=== PATIENT | male | born 1940 | race Caucasian/White ===

== ENCOUNTER 2023-07-25 10:09 | Outpatient (CLI) | payer MEDICARE, SELFPAY ==
[2023-07-25 11:06] LABS: Hematocrit 31.9 % (42.0-52.0); Hemoglobin 10.4 g/dL (14.0-18.0); Mean Corpuscular HGB Conc 32.6 g/dl (32-36); Mean Corpuscular Volume 91.9 fl (80-100); Mean Platelet Volume 9.5 fl (7.4-10.4); Platelet Count Result 148 k/mm3 (150-375); Red Blood Count 3.47 M/mm3 (4.6-6.20); Red Cell Distribution Width 13.7 % (11.5-14.5); White Blood Count 6.4 K/mm3 (4.5-10.0)
[2023-07-25 11:17] LABS: Anion Gap 13 mmol/L (8-16); Blood Urea Nitrogen 57 mg/dL (9-20); Calcium 9.9 mg/dL (8.4-10.2); Carbon Dioxide 25 mmol/L (22-30); Chloride 103 mmol/L (98-107); Estimated Glomerular Filt Rate 17; Glucose 146 mg/dL (65-110); Potassium 4.2 mmol/L (3.4-5.0); Sodium 141 mmol/L (137-145)
[2023-07-25 11:18] LABS: Prothrombin Time 13.9 Seconds (11.1-14.7)
[2023-07-25 11:20] LABS: Partial Thromboplastin Time 28.9 SECONDS (22.3-36.8)
[2023-07-25 11:23] LABS: Appearance Urine Clear (Clear); Bacteria Urine None Seen /hpf; Bilirubin Urine Negative (Negative); Blood Urine 1+ (Negative); Color Urine Yellow (Yellow); Glucose Urine UA Negative (Negative); Ketones Urine Negative (Negative); Leukocyte Esterase Ur Negative LEU/UL (Negative); Nitrate Urine Negative (Negative); Non Pathogenic Casts 0-2; Protein Urine 3+ mg/dL (Negative); RBC Urine 0-2 /hpf (0-2); Specific Grav Ur 1.012 (1.001-1.035); Squamous Epithelial Cell Urine None seen /hpf (Few); Urobilinogen Urine 0.2 mg/dL (<2.0); WBC Urine 0-5 /hpf; pH Urine 7.5 (5.0-9.0)
[2023-07-25 11:38] LABS: Add Urine Microscopic? YES
== END 2023-07-25 10:10 | disposition home or self-care (01) ==
PROVIDERS: Visit Provider Neurological Surgery
DX: M48.062 Spinal stenosis, lumbar region with neurogenic claudication (principal); Z01.818 Encounter for other preprocedural examination
CPT/HCPCS: 36415; 80048; 80053; 80061; 81001; 82043; 82607; 84443; 85027; 85610; 85730

== ENCOUNTER 2023-07-25 10:23 | Outpatient (CLI) | payer MEDICARE, SELFPAY ==
[2023-07-25 11:20] LABS: Alanine Aminotransferase 23 U/L (6-50); Albumin Level 4.6 g/dL (3.5-5.1); Alkaline Phosphatase 100 U/L (38-126); Anion Gap 12 mmol/L (8-16); Aspartate Amino Transferase 32 U/L (17-59); Bilirubin,Total 0.7 mg/dL (0.2-1.3); Blood Urea Nitrogen 57 mg/dL (9-20); Calcium 9.8 mg/dL (8.4-10.2); Carbon Dioxide 26 mmol/L (22-30); Chloride 103 mmol/L (98-107); Cholesterol 120 mg/dL (0-200); Estimated Glomerular Filt Rate 17; Glucose 148 mg/dL (65-110); HDL Direct 41 mg/dL; Potassium 4.2 mmol/L (3.4-5.0); Sodium 141 mmol/L (137-145); Triglycerides 143 mg/dL (<150)
[2023-07-25 11:31] LABS: LDL Cholesterol Direct 53 mg/dL
[2023-07-25 12:20] LABS: Microalbumin Urine Random > 1140.0 mg/L (0-16.7)
== END 2023-07-25 10:24 | disposition home or self-care (01) ==
PROVIDERS: Visit Provider Internal Medicine Endocrinology, Diabetes & Metabolism
DX: E11.65 Type 2 diabetes mellitus with hyperglycemia (principal); E78.5 Hyperlipidemia, unspecified; E78.1 Pure hyperglyceridemia; R80.9 Proteinuria, unspecified; Z79.4 Long term (current) use of insulin
CPT/HCPCS: 36415; 80053; 80061; 82043; 82607; 84443

== ENCOUNTER 2023-07-31 00:46 | Day surgery (SDC) | payer MEDICARE, SELFPAY ==
[2023-07-24 08:27] VITALS: BMI 26.5
--- NOTE | 2023-07-24 08:46 | PC.NURSE ---
PRE-OP INSTRUCTIONS, PLEASE READ CAREFULLY Report to the Outpatient Waiting Room, entrance under the green pavilion located off [facility], at time _1030_ on date _07/31/23_. Planned Procedure Time: _1230_. PACK A SMALL OVERNIGHT BAG AND LEAVE IN THE CAR Time changes happen often and if your time is changed the preop area will call you the afternoon before. - You and your visitor will be asked to self-screen and do not enter if you have any COVID symptoms. - A mask is optional within the hospital at this time. Patients may have clear liquids (water, carbonated beverages, clear teas, apple juice) until 3 hours prior to surgery (0930 AM) with a maximum of 20 ounces. - No food from midnight until time of surgery Take the following medications with a SIP of water the morning of surgery: _1/2 AM INSULIN DOSE, AMLODIPINE, ISOSORBIDE, METOPROLOL & INHALER, NITROGLYCERIN IF NEEDED_ DO NOT STOP ANY OF YOUR OTHER PRESCRIPTION MEDICATIONS PRIOR TO SURGERY ?EXCEPT THE FOLLOWING Medications to discontinue per DR. SALVADOR - _PT STATES TAKING LAST DOSE OF ASPIRIN & FISH OIL 07/23/23_ Medications to discontinue per ANESTHESIA - _MULTIVITAMIN 3 DAYS PRIOR TO SURGERY, Date to take last dose 07/27/23_ Please no make-up, nail yoruba, hairspray, perfume, deodorant, or body powder the day of surgery. No jewelry (including any body piercings) or valuables the day of surgery, leave them at home. Please take a shower or bath the night before, or the morning of, surgery with an antibacterial soap. Wear comfortable, loose fitting clothing. - Jewelry must be removed prior to entering the operating room. Rings and piercings that are not removed may be cut off. - The hospital will not accept responsibility for valuables. - Please leave all valuables, including medications, at home the day of surgery. If you are going home after surgery, a licensed uke driver must drive you home. - NO public transportation without another adult if you receive anesthesia. - We recommend that an adult stay with you for 24 hours following discharge. - We also recommend that you do not drive, make important decision, drink alcoholic beverages, or take any drugs that were not prescribed by your health care provider for at least 24 hours after your discharge time. Follow any additional instructions given to you from your surgeon. If you or anyone in your household have experienced Covid symptoms in the past week, please notify your surgeon or the nurse liaison at the phone number below for possible testing. Telephone instructions given to _PATIENT_and asked if any additional questions and then verbalized understanding. Patient advised to call surgeon office or pre surgery nurse liaison [phone] if any additional questions.
[2023-07-31] VITALS (13 sets, daily range): BP systolic 101–158; BP diastolic 48–68; PULSE 52–70; RESP 12–20; TEMP 36.1–36.5; O2SAT 93–100; BMI 26.7
--- NOTE | ~2023-07-31 | XR_ITS ---
EXAMINATION: XR chest 2V DATE: 08/01/2023 13:05 INDICATION: Hypoxia. TECHNIQUE: Frontal and lateral views of the chest were obtained. COMPARISON: None. FINDINGS: There are peripheral airspace opacities in right upper lung zone. No pleural effusion or pn eumothorax. The heart size is normal. Mediastinal surgical clips and changes of median sternotomy are likely secondary to coronary artery bypass grafting. IMPRESSION: 1. Peripheral airspace opacities in right upper lung zone, which may be pneumonia or scarring. Consid er noncontrast chest CT to exclude malignancy. Reviewed, dictated and finalized at location A. TRIPPER OPERATOR IMPRESSION: 1. Peripheral airspace opacities in right upper lung zone, which may be pneumon ia or scarring. Consider noncontrast chest CT to exclude malignancy.
--- NOTE | ~2023-07-31 | XR_ITS ---
EXAMINATION: XR fluoroscopy no charge DATE: 07/31/2023 14:00 BRIQUETTING MACHINE OPERATOR INDICATION: LUMBAR LAMINECTOMY . TECHNIQUE: 2 fluoroscopic images of the lumbar spine were obtained during lumbar laminectomy performe d by the surgeon. I was not present in the operating room. Fluoroscopy exposure time was 1.4 seconds. Air Kerma 0.3260 mGy. DAP 0.0065 mGym2. COMPARISON: None FINDINGS: Skin retractors over the posterior soft tissues. Wire over the posterior soft tissues may represent s timulator wires. Probe localization of the spinous process of L4. IMPRESSION: Fluoroscopic documentation of lumbar laminectomy. Please refer to the operative note for complete pro cedural details . Reviewed, dictated and finalized at location K. UETTING MACHINE OPERATOR IMPRESSION: Fluoroscopic documentation of lumbar laminectomy. Please refer to the operative note for complete procedural details .
[2023-07-31 11:21] LABS: Glucose Point of Care 153 mg/dl (65-105)
--- NOTE | 2023-07-31 11:58 | WPDANESEPPF ---
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 Patient Data Age: 82 Gender: M Height: 1.8 m Weight: 86.9 kg Allergies Allergy/AdvReac Type Severity Reaction Status Date / Time amoxicillin Allergy Unknown THROAT Verified 07/31/23 11:40 SWELLS glipizide Allergy Unknown PAIN UNDER Verified 07/31/23 11:40 THE Rt RIBCAGE niacin Allergy Unknown HOT FLASHES Verified 07/31/23 11:40 semaglutide [From Ozempic] AdvReac Intermediate Diarrhea Verified 07/31/23 11:40 NIACOR Allergy Mild Rash Uncoded 07/31/23 11:40 Home Medications Medication Instructions Recorded Confirmed Type amlodipine 10 mg tablet 10 mg PO DAILY 08/15/19 07/31/23 History aspirin 81 mg tablet,delayed 81 mg PO BID 08/15/19 07/31/23 History release (Adult Aspirin Regimen) doxazosin 2 mg tablet 2 mg PO HS 08/15/19 07/31/23 History isosorbide dinitrate 30 mg tablet 30 mg PO DAILY 08/15/19 07/31/23 History lancets (OneTouch UltraSoft #50 ea 08/15/19 07/31/23 History Lancets) metoprolol tartrate 50 mg tablet 50 mg PO Q12H 08/15/19 07/31/23 History nitroglycerin 0.4 mg sublingual 0.4 mg sublingual Q5M PRN Chest 08/15/19 07/31/23 History tablet Pain multivitamin 1 tablet PO DAILY 11/09/20 07/31/23 History lisinopril 40 mg tablet 40 mg PO DAILY 02/15/21 07/31/23 History blood sugar diagnostic #300 ea 03/29/22 07/31/23 Rx omega-3 fatty acids 1,250 mg 1,250 mg PO BID 03/29/22 07/31/23 History capsule potassium gluconate 595 mg (99 mg) 595 mg PO DAILY 03/29/22 07/31/23 History tablet furosemide 40 mg tablet 40 mg PO BID 12/14/22 07/31/23 History glucose 4 gram chewable tablet 16 g PO Q15M PRN hypoglycemia #60 12/14/22 07/31/23 Rx (Dex4 Glucose) tabs insulin degludec 100 unit/mL (3 20 unit (0.2 mL) subcut QHS 90 12/14/22 07/31/23 Rx mL) subcutaneous pen (Tresiba days #18 mL FlexTouch U-100 insulin) magnesium 250 mg tablet 500 mg PO DAILY 12/14/22 07/31/23 History pen needle, diabetic 32 gauge x #400 ea 12/14/22 07/31/23 Rx /32 (BD Ultra-Fine Rina Pen Needle) blood-glucose meter,continuous #1 ea 01/29/23 07/31/23 Rx (Dexcom G7 [employer] Dis[employer]) blood-glucose sensor (Dexcom G7 #9 ea 01/29/23 07/31/23 Rx Sensor device) insulin aspart U-100 100 unit/mL See Rx Instructions subcut TID 90 06/25/23 07/31/23 Rx (3 mL) subcutaneous pen (Novolog days #18 mL FlexPen U-100 Insulin aspart) albuterol 90 mcg/actuation aerosol 90 mcg inhalation QID PRN Wheezing 07/24/23 07/31/23 History inhaler atorvastatin 20 mg tablet 20 mg DAILY 07/24/23 07/31/23 History cetirizine 10 mg tablet 10 mg PO DAILY 07/24/23 07/31/23 History Laboratory Tests 07/31/23 11:16 POC Capillary Glucose 153 H mg/dl (65-105) Patient hx anesthesia problems: post op nausea/vomiting Family hx anesthesia problems: none Results Review: All pre-operative results and documents have been reviewed as part of the pre-operative evaluation. FOR[facility]LY [facility] Past Medical History Medical History Body mass index (BMI) 23 or greater (02/13/19) CAD (coronary artery disease) Essential hypertension Other and unspecified hyperlipidemia Type 2 diabetes mellitus with hyperglycemia Surgical History Surgical History History of cholecystectomy History of heart artery stent History of quadruple bypass Hx of appendectomy Hx of hernia repair Family History Family History Other Cerebrovascular accident Family history of cardiovascular disease Family history of congestive heart failure Social History Social History Smoking packs per day:
--- NOTE | 2023-07-31 13:20 | PM.IMHP ---
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 He has not changed appreciably since we last saw him. He has some slight dorsiflexion weakness but otherwise normal and symmetric strength in the bilateral lower extremities. He does not have specific dermatomal numbness. He is not having new bowel or bladder difficulty. Review of Systems Review of Systems: Const All systems reviewed & are unremarkable except as noted in HPI and below Denies chills, Denies fever(s), Denies frequent falls, Reports weakness, Denies weight gain and Denies weight loss Eyes Denies change in vision and Denies diplopia ENT Denies disequilibrium Card Denies chest pain and Denies dyspnea Resp Denies cough and Denies dyspnea GI Denies abdominal pain, Denies change in bowel habits, Denies fecal incontinence and Denies vomiting Denies hematuria, Denies oliguria, Denies difficulty urinating, Denies dysuria, Denies urinary frequency, Denies urinary hesitancy, Denies urinary incontinence and Denies urinary urgency Musc Reports as per HPI, Reports abnormal gait, Reports back pain, Denies numbness, Reports radiating pain into limb, Reports stiffness and Denies tingling Skin/ Breast Reports system reviewed and no additional complaints, except as documented Neuro Reports as per HPI, Reports abnormal gait, Denies burning sensations, Denies frequent falls, Reports focal weakness, Denies numbness, Reports radicular pain, Denies tingling, Denies disequilibrium and Reports weakness Psych Reports no additional complaints, Denies depression and Denies hopelessness Endo Reports no additional complaints and Denies polyuria Hans/ Lymph Reports no additional complaints Aller/ Immun Reports no additional complaints PMFSH Past Medical History Medical History Body mass index (BMI) 23 or greater (02/13/19) CAD (coronary artery disease) Essential hypertension Other and unspecified hyperlipidemia Type 2 diabetes mellitus with hyperglycemia Surgical History Surgical History History of cholecystectomy History of heart artery stent History of quadruple bypass Hx of appendectomy Hx of hernia repair Family History Family History Other Cerebrovascular accident Family history of cardiovascular disease Family history of congestive heart failure Social History Social History Smoking packs per day: 1 Smoking cigarettes per day: 20.0 Smoking status: Former smoker Tobacco type: cigarettes Second hand tobacco smoke exposure: No Additional smoking assessment comments: PT UNABLE TO RECALL YEARS SMOKED STATES >20YRS Alcohol intake: never Substance use: never Substance use type: does not use Lack of Transportation: No Lack of Food: Never True Current Housing: I Have Housing Concerned About Future Housing: No Difficulty Paying Gas/Electric Bills: No Difficulty Paying for Meds: No Currently Unemployed: No Education: Trade/Vocational Certificate Difficulty w/ Childcare or Family Care: No Living arrangements: with family Spiritual care concerns: No Meds Home Medications and Allergies Home Medications Medication Instructions Recorded Confirmed Type amlodipine 10 mg tablet 10 mg PO DAILY 08/15/19 07/31/23 History aspirin 81 mg tablet,delayed 81 mg PO BID 08/15/19 07/31/23 History release (Adult Aspirin Regimen) doxazosin 2 mg tablet 2 mg PO HS 08/15/19 07/31/23 History isosorbide dinitrate 30 mg tablet 30 mg PO DAILY 08/15/19 07/31/23 History lancets (OneTouch UltraSoft #50 ea 08/15/19 07/31/23 History Lancets) metoprolol tartrate 50
--- NOTE | 2023-07-31 13:22 | WPDHPUPDATE1 ---
History and Physical Update Update Date/Time: 07/31/23 13:22 History and Physical has been reviewed, including an updated exam of the patient. There are NO changes in the patient's condition. Risks, benefits, and alternatives have been discussed and questions answered. Patient agrees to proceed with procedure.
[2023-07-31] MEDS: CLINDAMYCIN 900 MG/D5W 50 ML 900 MG/50 ML PIGGYBACK 50 MG IVPB (13:37)
[2023-07-31] MEDS: LIDO 1%/EPINEPHRINE 1:100,000 50 ML VIAL 10 ML INFILTRATE (14:16)
--- NOTE | 2023-07-31 15:30 | W.PM.PROC2 ---
Procedure Note - Detailed Date of Procedure 07/31/23 Pre-op Diagnosis L 2-5 Stenosis Post-op Diagnosis Same Procedure Performed L2-5 laminectomy Surgeon Broderick Stone MD Anesthesia General Description of Procedure Patient was brought to the operating room in the supine position, was sedated, intubated and placed under general anesthesia in routine fashion. Was then turned into the prone position on a Lawrence frame. The operation was back was examined, marked for incision, prepped and draped in routine sterile fashion. Incision was marked over the L2-3 5 spinous processes in the midline. This area was injected with 0.5% lidocaine with [id number] epinephrine. Intravenous antibiotics given prior to incision. Incision was made with a 10 blade scalpel down to the lumbodorsal fascia. A subperiosteal dissection of the muscle soft tissue away from spinous process and lamina at L2-5 was performed with a subperiosteal elevator and Bovie cautery. A verifying x-rays obtained to verify the level of operation. The L2 through 4 in the bottom of the L5 spinous process were removed with a Adrian rongeur. The [employer] Jordin drill with an Chiawuli Tak bit was used to resect the lamina in the midline to the soft contents of the canal were encountered. Kerrison punches and curved curettes were used to define a plane with the dura and remove bone and ligament in the midline. In the lateral recess curved curette was used to define a plane with the dura and lift overgrown ligament. Kerrison punches were used to remove overgrown bone and ligament in the lateral recess starting superiorly and working inferiorly. There were significant overgrowth of the bone and facet especially at the L3-4 level and on the right at L4-5. This was carefully dissected away from the dura so as not to interrupt the dura. No interruptions were noted or leaking. These maneuvers were performed until a curved curette and dental instrument could be placed in the lateral epidural space to confirm lack of compression and feel the pedicles. The wound was then copiously irrigated with bacitracin irrigation all bleeding. Bipolar and Bovie cautery Gelfoam thrombin powder. Wound was then closed in layered fashion with 2-0 Vicryl interrupted sutures in the lumbodorsal fascia and Ernesto's layer. 3-0 Vicryl buried interrupted sutures were placed in the dermis and the skin was closed with a running 4-0 Monocryl subcuticular stitch and dressed with Dermabond. A medium Hemovac drain had been left in the subfascial position buried out to the inferior right of the incision prior to closure. Patient was then allowed to wake up in the operating room and was taken to the recovery room in stable condition. There were no immediate complications of this operation. All counts were reported correct in the case. Blood loss was 50 cc. The patient was neurologically at his baseline postoperatively. CPT codes: 56379, 40089 x 3 Estimated Blood Loss 50 IV Fluids 1,000 Complications None Condition Stable Disposition PACU [facility] Billing Surgery - Charge Forward: Surgery Billing
[2023-07-31] MEDS: LACTATED RINGERS 1,000 ML 30 ML IV CONT ×2 (15:37→15:38)
[2023-07-31 16:03] LABS: Glucose Point of Care 152 mg/dl (65-105)
--- NOTE | 2023-07-31 16:15 | SUR.PHASEI ---
1615: Simple mask removed.
--- NOTE | 2023-07-31 16:48 | SUR.PHASEI ---
1635: Patient meets PACU discharge criteria, unit bed unavailable at this time. Patient placed in extended recovery status.
--- NOTE | 2023-07-31 17:32 | ADMGEN ---
This patient, Car Cobos Jr., was admitted to Medical Room 348-01. Patient/family oriented to hospital policies and general routines including ID bracelet, bed and alarms, visiting hours, pain management, procedures, bathroom and other care routines, personal items, smoking policy, room service/diet, and visiting hours. Information on how to activate the Rapid Response Team has been discussed. Patient/Family are encouraged to report perceived risks to care and to ask questions if they do not understand what they are told or what they should do.
[2023-07-31] MEDS: KCL 20 MEQ/D5/0.45% SOD CHL 1,000 ML 100 ML IV CONT (18:03)
[2023-07-31] MEDS: OMEGA 3 POLYUNSAT FATTY ACIDS 1 GM CAP PO (18:03)
[2023-07-31] MEDS: FUROSEMIDE 40 MG TABLET PO (18:03)
[2023-07-31] MEDS: HYDROcodone/acetaminophen (*CRX) 10-325 MG TABLET 1 TAB PO (18:12)
[2023-07-31 20:33] LABS: Glucose Point of Care 282 mg/dl (65-105)
[2023-07-31] MEDS: METOPROLOL TARTRATE 50 MG TAB PO (20:39)
[2023-07-31] MEDS: DOXAZOSIN MESYLATE 2 MG TABLET PO (20:39)
[2023-07-31] MEDS: ceFAZolin 1 GM/NS 50 ML 1 GM/50 ML BAG IVPB (20:39)
[2023-07-31] MEDS: DOCUSATE SODIUM 100 MG CAPSULE PO (20:39)
[2023-07-31] MEDS: INSULIN GLARGINE (*BKC) 100 UNITS/ML 20 UNITS SUB-Q (20:42)
[2023-08-01] VITALS (8 sets, daily range): BP systolic 141–162; BP diastolic 79–84; PULSE 58–85; RESP 14–18; TEMP 36.2–36.9; O2SAT 89–99
[2023-08-01] MEDS: HYDROcodone/acetaminophen (*CRX) 10-325 MG TABLET 1 TAB PO (02:41)
[2023-08-01] MEDS: KCL 20 MEQ/D5/0.45% SOD CHL 1,000 ML 100 ML IV CONT (02:42)
[2023-08-01] MEDS: ceFAZolin 1 GM/NS 50 ML 1 GM/50 ML BAG IVPB ×2 (06:15→13:10)
[2023-08-01 08:22] LABS: Glucose Point of Care 323 mg/dl (65-105)
[2023-08-01] MEDS: ATORVASTATIN 20 MG TABLET BY MOUTH (09:32)
[2023-08-01] MEDS: LORATADINE 10 MG TABLET PO (09:32)
[2023-08-01] MEDS: MULTIVITAMINS THERAPEUTIC TAB (*BKC) 1 TABLET PO (09:32)
[2023-08-01] MEDS: DOCUSATE SODIUM 100 MG CAPSULE PO (09:32)
[2023-08-01] MEDS: FUROSEMIDE 40 MG TABLET PO (09:32)
[2023-08-01] MEDS: MAGNESIUM 27 MG TABLET (500 MG MAG GLUCONATE) PO (09:32)
[2023-08-01] MEDS: OMEGA 3 POLYUNSAT FATTY ACIDS 1 GM CAP PO (09:32)
[2023-08-01] MEDS: lisinopriL 20 MG TABLET 40 MG PO (09:33)
[2023-08-01] MEDS: amLODIPine BESYLATE 5 MG TABLET 10 MG PO (09:33)
[2023-08-01] MEDS: ISOSORBIDE DINITRATE 10 MG TABLET 30 MG PO (09:34)
[2023-08-01] MEDS: METOPROLOL TARTRATE 50 MG TAB PO (09:35)
[2023-08-01] MEDS: INSULIN ASPART (*BKC) 100 UNITS/ML SUB-Q ×3 (09:45→17:04)
[2023-08-01 09:55] LABS: Hematocrit 30.3 % (42.0-52.0); Hemoglobin 9.6 g/dL (14.0-18.0); Mean Corpuscular HGB Conc 31.7 g/dl (32-36); Mean Corpuscular Volume 94.7 fl (80-100); Mean Platelet Volume 9.7 fl (7.4-10.4); Platelet Count Result 167 k/mm3 (150-375); Red Cell Distribution Width 13.9 % (11.5-14.5); White Blood Count 9.9 K/mm3 (4.5-10.0)
[2023-08-01 10:04] LABS: Anion Gap 12 mmol/L (8-16); Blood Urea Nitrogen 43 mg/dL (9-20); Calcium 9.2 mg/dL (8.4-10.2); Carbon Dioxide 20 mmol/L (22-30); Chloride 108 mmol/L (98-107); Estimated CRCL calculation 20 ml/min; Estimated Glomerular Filt Rate 21; Glucose 312 mg/dL (65-110); Potassium 5.1 mmol/L (3.4-5.0); Sodium 140 mmol/L (137-145)
--- NOTE | 2023-08-01 11:08 | HOMEO2EVAL ---
Evaluation was performed at [facility] Home Oxygen Evaluation RC: Home Oxygen (O2) Evaluation Start: 08/01/23 09:18 Freq: ONCE Status: Active Protocol: RPE Activity Type Activity Date Activity User E-sign Co-sign Detail Recorded Client Recorded Date Recorded By Document 08/01/23 10:00 [facility] [id number] 08/01/23 11:08 [facility] Document 08/01/23 10:05 [facility] [id number] 08/01/23 11:08 [facility] Document 08/01/23 10:15 [facility] [id number] 08/01/23 11:08 [facility] 08/01/23 08/01/23 08/01/23 10:00 10:05 10:15 Home O2 Evaluation [Oxygen] -Test Phase Resting Exercise Resting -Oxygen Delivery Room Air Room Air Room Air [Pulse Oximetry] -Pulse Oximetry (90-100 %) 95 89 L 96 [Pulse Rate] -Pulse Rate (60-100 beats/min) 63 81 64 [Evaluation] -Activity Tolerance Good [Charges] -Evaluation Charges O2 Evaluation by Pulmonary
--- NOTE | 2023-08-01 11:08 | PCRCNOTE ---
HOME O2 EVAL COMPLETE, NO REQUIREMENTS
[2023-08-01 12:02] LABS: Glucose Point of Care 292 mg/dl (65-105)
--- NOTE | 2023-08-01 14:48 | WPDANESPN ---
Anes - Prog Note Post-Op Date/Time: 08/01/23 14:48 Cardiovascular status: normal Respiratory status: normal Airway patency: baseline Mental status: baseline Post-Op hydration status: normal Vital Signs: Last Vital Signs Temp 36.2 C L 08/01/23 14:00 Pulse 58 L 08/01/23 14:00 Resp 14 08/01/23 14:00 BP 141/79 H 08/01/23 14:00 Pulse Ox 96 08/01/23 14:00 O2 Del Method Room Air 08/01/23 11:11 O2 Flow Rate 2 08/01/23 08:35 Pain Score (VAS): 0 I/O: Intake & Output 07/31/23 08/01/23 08/01/23 23:59 07:59 15:59 Intake Total 550 1200 1000 Output Total 60 950 Balance 183 352 5041 Laboratory Tests 08/01/23 09:49 08/01/23 09:49 07/31/23 07/31/23 08/01/23 16:00 20:16 08:15 WBC RBC Hgb Hct MCV MCH MCHC RDW Plt Count MPV Sodium Potassium Chloride Carbon Dioxide Anion Gap BUN Creatinine Estim Creat Clear Calc Estimated GFR Glucose POC Capillary Glucose 152 H 282 H 323 H Calcium 08/01/23 08/01/23 09:49 11:59 WBC 9.9 RBC 3.20 L Hgb 9.6 L Hct 30.3 L MCV 94.7 MCH 30.0 MCHC 31.7 L RDW 13.9 Plt Count 167 MPV 9.7 Sodium 140 Potassium 5.1 H Chloride 108 H Carbon Dioxide 20 L Anion Gap 12 BUN 43 H D Creatinine 2.90 H Estim Creat Clear Calc 20 Estimated GFR 21 L Glucose 312 H POC Capillary Glucose 292 H Calcium 9.2 Post-procedural complaints: none Patient Feedback: Patient satisfied with anesthetic care.
[2023-08-01 16:57] LABS: Anion Gap 12 mmol/L (8-16); Blood Urea Nitrogen 45 mg/dL (9-20); Calcium 9.3 mg/dL (8.4-10.2); Carbon Dioxide 20 mmol/L (22-30); Chloride 107 mmol/L (98-107); Estimated CRCL calculation 20 ml/min; Estimated Glomerular Filt Rate 21; Glucose 267 mg/dL (65-110); Potassium 4.7 mmol/L (3.4-5.0); Sodium 139 mmol/L (137-145)
--- NOTE | 2023-08-01 17:31 | WPDNEUROSGPN ---
Progress Note: A&P Assessment and Plan (1) Status post lumbar laminectomy: Code(s): Z98.890 - Other specified postprocedural states Status: Acute Plan s/p L2-5 laminectomies yesterday Plan: -Remove hemovac drain today -On discussion with the patient, his family, and his nurse, he is well aware of how to control his blood sugars at home and believes it is related to eating non-diabetic foods given to him in the hospital as well as from receiving D5W through his IV. -Discharge home this evening -Restrictions reviewed at bedside -Follow up with Dr. Stone as scheduled next month Subjective Date/time seen: 08/01/23 17:31 Interval history: Doing very well with no back pain and no leg pain or paresthesias. He had some hypoxia this morning with walking but has since cleared a home O2 evaluation without need for oxygen. He has ambulated in halls and has been cleared for discharge home. His blood sugars have been high, but he states this was related to receiving non-diabetic foods for breakfast that he normally would not eat at home. He knows how to manage his blood sugars at home if they are high. He would like to go home this evening. Review of Systems Review of Systems: All systems reviewed & are unremarkable except as noted in HPI and below Exam Narrative: AOX4 Full strength in lower extremities Sensation intact to light touch Dressing c/d/i Hemovac has had 100cc out since 7am Objective Data Vital Signs Vital Signs: Vital Signs - 24 hr 07/31/23 18:05 07/31/23 18:14 07/31/23 17:55 Temperature 97.7 F Pulse Rate 55 L 61 Respiratory Rate 15 18 Blood Pressure 155/58 H Pulse Oximetry 98 97 99 Oxygen Delivery Nasal Cannula Nasal Cannula Oxygen Flow Rate 2 2 07/31/23 18:10 07/31/23 18:47 07/31/23 20:39 Temperature 97.2 F L 97.0 F L Pulse Rate 70 70 70 Respiratory Rate 18 18 Blood Pressure 153/65 H 158/68 H Pulse Oximetry 97 95 Oxygen Delivery Oxygen Flow Rate 07/31/23 20:50 08/01/23 02:27 08/01/23 06:02 Temperature 97.3 F L 97.5 F L 98.4 F Pulse Rate 61 85 73 Respiratory Rate 17 18 16 Blood Pressure 132/54 L 155/83 H 162/84 H Pulse Oximetry 94 99 96 Oxygen Delivery Oxygen Flow Rate 08/01/23 08:35 08/01/23 09:35 08/01/23 08:00 Temperature Pulse Rate 70 70 Respiratory Rate 16 Blood Pressure Pulse Oximetry 94 Oxygen Delivery Nasal Cannula Nasal Cannula Oxygen Flow Rate 2 2 08/01/23 10:00 08/01/23 10:05 08/01/23 10:15 Temperature Pulse Rate 63 81 64 Respiratory Rate Blood Pressure Pulse Oximetry 95 89 L 96 Oxygen Delivery Room Air Room Air Room Air Oxygen Flow Rate 08/01/23 11:11 08/01/23 14:00 Temperature 97.2 F L Pulse Rate 58 L Respiratory Rate 14 Blood Pressure 141/79 H Pulse Oximetry 96 Oxygen Delivery Room Air Oxygen Flow Rate Intake/Output Intake/Output: Intake & Output 07/29/23 07/30/23 07/31/23 08/01/23 23:59 23:59 23:59 23:59 Intake Total 1550 2200 Output Total 60 950 Balance 1490 1250 Meds/Results Medications: Active Medications Generic Name Dose Route Start Last Admin Trade Name Freq PRN Reason Stop Dose Admin Hydrocodone Bitart/Acetaminophen 1 tab 07/31/23 17:18 Hydrocodone/Acetaminophen (*Crx) 5-325 Mg Tablet PO Q4H PRN Mild Pain (1-3) Hydrocodone Bitart/Acetaminophen 1 tab 07/31/23 17:18 08/01/23 02:41 Hydrocodone/Acetaminophen (*Crx) 10-325 Mg Tablet PO 1 tab Q4H PRN Administration Moderate Pain (4-6) Al Hydrox/Mg Hydrox/Simethicone 20 ml 07/31/23 17:18 Mag Hydrox/Al Hydrox/Simeth 30 Ml Udc PO Q4H PRN Indigestion/Heartburn Albuterol 1 puff 07/31/23 17:47 Albuterol Sulfate (*Sp) Aerosol 1 Puff INHALATION QIDRT PRN Wheezing Amlodipine Besylate 10 mg 08/01/23 09:00 08/01/23 09:33 Amlodipine Besylate 5 Mg Tablet PO 10 mg DAILY VINICIUS Administration Atorvastatin Calcium 20 mg 08/01/23
--- NOTE | 2023-08-01 17:49 | PM.IMCN ---
Assessment and Plan Assessment and plan (1) Status post lumbar laminectomy: Code(s): Z98.890 - Other specified postprocedural states Status: Acute Assessment and Plan: Patient is status post laminectomy of L2 through L5. Is following with Neurosurgery. Planned outpatient follow-up. Drain discontinued, 100 cc of output since 7:00 a.m. Remains serosanguineous. Plan for discharge today. (2) Type 2 diabetes mellitus with hyperglycemia: Qualifiers: Diabetes mellitus terminal make up operator insulin use: with group home use Qualified Code(s): E11.65 - Type 2 diabetes mellitus with hyperglycemia; Z79.4 - penitentiary (current) use of insulin Code(s): E11.65 - Type 2 diabetes mellitus with hyperglycemia Status: Acute Assessment and Plan: Mild hyperglycemia, likely secondary to non-diabetic diet while in hospital and IVF fluids containing dextrose and potassium. Patient has sliding scale at home, understands utilizing this to treat his glucose. no complaints of increased thirst, blurred vision or fatigue. (3) Hypertension: Code(s): I10 - Essential (primary) hypertension Status: Acute Assessment and Plan: Chronic, continue home medication. No changes to medication at discharge. (4) Hyperlipidemia LDL goal <100: Code(s): E78.5 - Hyperlipidemia, unspecified Status: Acute Assessment and Plan: Chronic, continue statin. (5) Hyperkalemia: Code(s): E87.5 - Hyperkalemia Status: Acute Assessment and Plan: K 5.1 this morning, likely secondary to IVF fluids containing dextrose and potassium. IVF discontinued. recheck at 1400 today, now resolved at 4.7. (6) Chronic kidney disease: Code(s): N18.9 - Chronic kidney disease, unspecified Status: Acute Assessment and Plan: Respiratory Care Faculty 2.9, baseline this month 2.9-3.5. Plan Discharged today 08/01 by NeuroSurg, follow-up with them outpatient. Diet: Diabetic GI Prophylaxis: not indicated DVT Prophylaxis: SCDs, no pharm Lines: pIV Code Status: Full Code HPI Date of Consult Consult date: 08/01/23 Requesting Physician: Broderick Stone MD Primary Care Provider: Abhijit Kim Consult Narrative Reason for consult: Medical Managment Narrative: Car Cobos Jr. is a 82 year old male presented here for laminectomy of L2-L5. Patient presents here for surgical management of his neurogenic claudication secondary to spinal stenosis. Patient had laminectomy of L2 through L5 on 07/31 without immediate post-op complications. Patient had Hemovac drain removed today, scant serosanguineous output. He reports improvement in pain to his hips and lower extremities post-operation. Blood sugars mildly elevated, may be related to eating non-diabetic diet while admitted and receiving IVF with dextrose and potassium. Patient has sliding scale and verbalized understanding administration/parameters. no other complaints or concerns. Review of Systems Review of Systems: All systems reviewed & are unremarkable except as noted in HPI and below PMFSH Past Medical History Medical History Body mass index (BMI) 23 or greater (02/13/19) CAD (coronary artery disease) Essential hypertension Other and unspecified hyperlipidemia Type 2 diabetes mellitus with hyperglycemia Surgical History Surgical History History of cholecystectomy History of heart artery stent History of quadruple bypass Hx of appendectomy Hx of hernia repair Family History Family History Other Cerebrovascular accident Family history of cardiovascular disease Family history of congestive heart failure Social History Social History Smoking packs per day: 1 [place]
== END 2023-08-01 18:45 | disposition home or self-care (01) ==
LOC: ANHSURGERY 10:21 → ANH3MED 17:19
PROVIDERS: General Practice; Student in an Organized Health Care Education/Training Program; Visit Provider Neurological Surgery
PROC: (CPT 63005; principal; 2023-07-31 12:30)
DX: M48.062 Spinal stenosis, lumbar region with neurogenic claudication (principal); I25.10 Atherosclerotic heart disease of native coronary artery without angina pectoris; I10 Essential (primary) hypertension; E11.9 Type 2 diabetes mellitus without complications; E78.49 Other hyperlipidemia; Z95.1 Presence of aortocoronary bypass graft; Z95.5 Presence of coronary angioplasty implant and graft; Z79.82 Long term (current) use of aspirin; Z79.4 Long term (current) use of insulin; Z79.51 Long term (current) use of inhaled steroids; Z87.891 Personal history of nicotine dependence
CPT/HCPCS: 63047; 63048 ×2; 36415; 71046; 80048; 82948; 85027; 94618; 97161; 97165; 97530; 97535; 99199; A9270; J0330; J0690; J1100; J1170; J1815; J2405; J2704; J3010; J3480; J7120